=== PATIENT | male | born 1950 | race Two or more races ===

== ENCOUNTER 2017-03-27 07:38 | Outpatient (CLI) | payer MEDICARE ==
[2017-03-27] MEDS ORDERED: REGADENOSON 0.4 MG/5 ML DISP.SYRIN IVP ONE (08:30)
[2017-03-28 09:17] LABS: URIC ACID 6.9 mg/dL (2.6-7.2)
== END 2017-03-27 23:59 | disposition home or self-care (01) ==
LOC: RAD 07:38 → EDSEX 07:38 → RAD 23:59
PROVIDERS: ATTEND Internal Medicine Interventional Cardiology
DX: E11.9 Type 2 diabetes mellitus without complications (principal); I10 Essential (primary) hypertension; R07.9 Chest pain, unspecified
CPT/HCPCS: 78452; 80048; 83036; A9502; J2785; 36415; 84550-TC